=== PATIENT | female | born 1960 | race Caucasian/White ===

== ENCOUNTER 2023-04-03 09:54 | Day surgery (SDC) | payer OTHER, SELFPAY ==
[2023-04-03] MEDS ORDERED: Ringers Lactate 1,000 ML IV ONE (10:27)
[2023-04-03] MEDS ORDERED: LIDOCAINE 1% MPF 5 ML VIAL ONE (11:47)
[2023-04-03] MEDS ORDERED: propofoL 200 MG/20 ML VIAL IV ONE ×3 (11:47→11:48)
== END 2023-04-03 12:44 | disposition home or self-care (01) ==
LOC: OR 09:54
PROVIDERS: ATTEND Internal Medicine Gastroenterology
PROC: 0DBM8ZX Excision of Descending Colon, Via Natural or Artificial Opening Endoscopic, Diagnostic (ICD-10-PCS; principal; 2023-04-03 11:45)
DX: R19.4 Change in bowel habit (principal); D50.9 Iron deficiency anemia, unspecified; R10.31 Right lower quadrant pain; E66.3 Overweight; K92.1 Melena; R10.32 Left lower quadrant pain; K64.8 Other hemorrhoids; D12.4 Benign neoplasm of descending colon
CPT/HCPCS: 88305; J2001; J2704; J7120

== ENCOUNTER 2024-10-08 07:26 | Day surgery (SDC) | payer OTHER ==
[2024-10-05 12:32] LABS: Absolute Eosinophils 0.1 K/uL (0-0.5); Absolute Lymphocytes (CBC) 1.9 K/uL (0.7-4.9); Absolute Monocytes 0.4 K/uL (0.1-1.3); Absolute Neutrophil 3.1 K/uL (1.8-8.0); Basophils % 0.4 % (0-1.3); Eosinophils % 1.9 % (0-4.4); Hematocrit 39.6 % (36.0-45.0); Hemoglobin 13.7 g/dL (12.0-15.0); Lymphocytes % 34.2 % (15.3-44.8); MCH 30.1 pg (27.0-35.0); MCHC 34.7 g/dL (32.0-36.0); MCV 86.8 fL (80-100); MPV 7.9 fL (7.6-11.3); Monocytes % 7.6 % (3.3-12.3); Neutrophils % 55.9 % (41.7-73.7); Platelets 216 thou/uL (152-406); RBC Red Blood Cell Count 4.56 M/uL (3.86-4.86); Red Cell Distribution Width 14.5 % (12.1-15.2)
[2024-10-05 12:49] LABS: Anion Gap 9.1 mEq/L (5.0-15.0); Potassium 4.1 mEq/L (3.5-5.1)
--- NOTE | 2024-10-07 12:25 | EKG ---
Test Date: 2024-10-05 Test Time: 12:28:00 Farm Consultant: DONNIE MEASUREMENT RESULTS: Intervals: Rate: 50 CT: 194 QRSD: 78 QT: 434 QTc: 395 [place]: P: 51 CT: 194 QRS: 41 T: 49 INTERPRETIVE STATEMENTS: Sinus bradycardia Otherwise normal ECG No previous ECG available for comparison Electronically Signed On 10-07-24 12:24:21 CDT by Ranjith Collins
[2024-10-08] MEDS: Ringers Lactate 1,000 ML IV ONE (07:50)
[2024-10-08] MEDS ORDERED: EPINEPHRINE 1 MG/ML VIAL ONE (07:59)
[2024-10-08] MEDS ORDERED: propofoL 200 MG/20 ML VIAL IV ONE (08:21)
[2024-10-08 09:40] VITALS: O2SAT 100
[2024-10-08 09:52] VITALS: BP 150/58; TEMP 97.7
== END 2024-10-08 09:47 | disposition home or self-care (01) ==
LOC: OR 07:26
PROVIDERS: ATTEND Internal Medicine Gastroenterology
PROC: 0DB68ZX Excision of Stomach, Via Natural or Artificial Opening Endoscopic, Diagnostic (ICD-10-PCS; 2024-10-08)
PROC: 0DB38ZX Excision of Lower Esophagus, Via Natural or Artificial Opening Endoscopic, Diagnostic (ICD-10-PCS; 2024-10-08)
PROC: 0DB98ZX Excision of Duodenum, Via Natural or Artificial Opening Endoscopic, Diagnostic (ICD-10-PCS; principal; 2024-10-08 08:30)
DX: K25.9 Gastric ulcer, unspecified as acute or chronic, without hemorrhage or perforation (principal); K29.60 Other gastritis without bleeding; K31.9 Disease of stomach and duodenum, unspecified
CPT/HCPCS: 93005; 85025; 80048; 36415; 88312; 88305; 43239; J2704; J7120; J0171